=== PATIENT | male | born 1940 | race Caucasian/White ===

== ENCOUNTER → 2018-03-31 | Outpatient (CLI) | payer MEDICARE ==
[~2018-03-31] MED LIST: ALPR0.254 PO; ASPI-496 PO; CARV12.52 PO; CHOL100011 PO; CYAN100T PO; CYAN1TAB29 PO; FURO20TA3 PO; GABA-826 PO; LACT1CAP35 PO; LEVO112T4 PO; LISI2.5T PO; LISI5TAB7 PO; METF500T27 PO; MULT-717 PO; OMEP-110 PO; OXYC-302 PO; OXYC5TAB3 PO; POTA10CA PO; PREG50CA PO; REPA1TAB22 PO; RIVA20TA PO; ROSU10TA PO; ROSU5TAB PO; SILO8CAP PO; SOTA80TA PO; TAMS-11 PO; TEST1.25 TP; ZOLP-413 PO; xarelto PO
[2018-03-31 12:50] LABS: BASOPHILS # (AUTO) 0.03 x10^3/uL (0-0.1); BASOPHILS % (AUTO) 0 % (0-1); EOSINOPHILS % (AUTO) 15 % (1-7); LYMPHOCYTES % (AUTO) 21 % (22-44); MD NO; MEAN CORPUSCULAR HGB CONC 33.8 g/dL (33.2-36.2); MEAN CORPUSCULAR VOLUME 94.7 fL (81-97); MEAN PLATELET VOLUME 10.2 fL (7.4-10.4); MONOCYTES # (AUTO) 1.12 x10^3/uL (0.2-0.8); MONOCYTES % (AUTO) 10 % (2-9); NEUTROPHILS # (AUTO) 5.78 x10^3/uL (1.8-6.8); NEUTROPHILS % (AUTO) 53 % (42-75); PLATELET COUNT 176 x10^3/uL (130-400); RED BLOOD COUNT 4.45 x10^6/uL (4.38-5.82); RED CELL DISTRIBUTION WIDTH 13.9 % (9.4-14.8)
[2018-03-31 13:01] LABS: ALANINE AMINOTRANSFERASE 27 U/L (12-78); ALBUMIN 3.6 g/dL (3.4-5.0); ANION GAP 6 mmol/L (5-15); CALCIUM 8.8 mg/dL (8.5-10.1); CHLORIDE 110 mmol/L (98-107); CREATININE 1.45 mg/dL (0.7-1.3)
[2018-03-31 13:03] LABS: ALKALINE PHOSPHATASE 83 U/L (45-117); BILIRUBIN,TOTAL 0.6 mg/dL (0.2-1.0); TOTAL PROTEIN 7.8 g/dL (6.4-8.2)
== END | disposition home or self-care (01) ==
LOC: STAR 11:18
PROVIDERS: ATTEND Surgery
DX: Z01.818 Encounter for other preprocedural examination (principal)
CPT/HCPCS: 36415; 80053; 85025; 93005

== ENCOUNTER 2018-04-12 09:34 | Day surgery (SDC) | payer MEDICARE ==
[~2018-04-12] VITALS: Ht 177.8 cm; Wt 87.1 kg
[~2018-04-12 09:34] MED LIST changes: +BUPIVACAINE/PF 0.5% ONE
[2018-04-12] MEDS ORDERED: LACTATED RINGERS 1,000 ML IV SCH ×2 (11:00→19:42)
[2018-04-12 11:01] VITALS: BP 129/78
[2018-04-12] MEDS ORDERED: RIVA20TA PO (11:12)
[2018-04-12] MEDS ORDERED: MIDAZOLAM 1 MG/ML, 2ML ONE (11:51)
[2018-04-12] MEDS ORDERED: FENTANYL PF 250 MCG/5ML ONE (11:51)
[2018-04-12] MEDS ORDERED: SUCCINYLCHOLINE 20 MG/ML, 10ML ONE (11:52)
[2018-04-12] MEDS ORDERED: ROCURONIUM 10 MG/ML,10ML ONE (11:52)
[2018-04-12] MEDS ORDERED: CEFAZOLIN 1,000 MG ONE (11:52)
[2018-04-12] MEDS ORDERED: ALBUTEROL SULFATE 200 PUFFS/8.5 GR INH ONE (11:52)
[2018-04-12] MEDS ORDERED: PROPOFOL 10 MG/ML, 20ML ONE (11:52)
[2018-04-12] MEDS ORDERED: PHENYLEPHRINE 10 MG/ML ONE (11:52)
[2018-04-12] MEDS ORDERED: DEXAMETHASONE 4 MG/ML, 1ML ONE (11:52)
[2018-04-12] MEDS ORDERED: ALBUTEROL SULFATE 2.5 MG/3 ML NPPB PRN (14:00)
[2018-04-12] MEDS ORDERED: PROMETHAZINE 25 MG/ML, 1ML IV PRN (14:00)
[2018-04-12] MEDS ORDERED: ONDANSETRON 2MG/ML, 2ML IVPush PRN ×2 (14:00→20:00)
[2018-04-12] MEDS ORDERED: MEPERIDINE/PF 25MG/0.5ML IVPush PRN (14:00)
[2018-04-12] MEDS ORDERED: METOCLOPRAMIDE 5 MG/ML, 2ML IV PRN (14:00)
[2018-04-12] MEDS ORDERED: LABETALOL 5MG/ML, 20ML IV PRN (14:00)
[2018-04-12] MEDS ORDERED: hydrALAzine 20 MG/ML, 1ML IV PRN (14:00)
[2018-04-12] MEDS ORDERED: OXYcodone 5 MG/5 ML ORAL.SOL UDC ONE ×2 (14:00→14:48)
[2018-04-12] MEDS ORDERED: FENTANYL PF 100 MCG/2ML ONE (14:00)
[2018-04-12] MEDS ORDERED: KETOROLAC 30 MG/1 ML IV PRN (14:00)
[2018-04-12] MEDS: FENTANYL PF 100 MCG/2ML IV PRN ×3 (14:02→14:22)
[2018-04-12] MEDS ORDERED: ACETAMINOPHEN 650 MG/20.3 ML UDC ONE (14:06)
[2018-04-12] MEDS: OXYcodone 5 MG/5 ML ORAL.SOL UDC PO PRN ×2 (14:06→14:49)
[2018-04-12] MEDS ORDERED: KETOROLAC 30 MG/1 ML ONE (14:23)
[2018-04-12] MEDS ORDERED: HYDROmorphone 2 MG/ML, 1ML ONE (14:23)
[2018-04-12] MEDS: HYDROmorphone 1 MG/ML, 1ML IV PRN ×4 (14:30→14:55)
[2018-04-12] MEDS ORDERED: ACETAMINOPHEN 650 MG/20.3 ML UDC PO PRN (14:30)
[2018-04-12] MEDS ORDERED: DIPHENHYDRAMINE 50 MG/ML, 1ML IVPush PRN (20:00)
[2018-04-12] MEDS ORDERED: OXYcodone/APAP 5/325MG TABLET PO PRN (20:00)
== END 2018-04-12 22:00 | disposition home or self-care (01) ==
LOC: OUT 09:34 → 4NOR 19:14 → OUT 22:00
PROVIDERS: ATTEND Surgery
DX: K43.2 Incisional hernia without obstruction or gangrene (principal); E11.9 Type 2 diabetes mellitus without complications; I25.10 Atherosclerotic heart disease of native coronary artery without angina pectoris; E78.5 Hyperlipidemia, unspecified; Z98.890 Other specified postprocedural states; Z95.0 Presence of cardiac pacemaker; Z72.89 Other problems related to lifestyle; Z95.1 Presence of aortocoronary bypass graft; Z79.899 Other long term (current) drug therapy
CPT/HCPCS: 49654; 82962; C1781; J0330; J0690; J1100; J1170; J1885; J2250; J2370; J2704; J3010; J3490; J7120; S2900